=== PATIENT | female | born 2000 | race Caucasian/White ===

== ENCOUNTER 2022-10-24 11:14 | Emergency (ER) | payer OTHER, SELFPAY ==
[2022-10-24 11:50] VITALS: BP 122/75; PULSE 88; RESP 18; TEMP 37.2; O2SAT 97
[2022-10-24] MEDS: HYDROmorphone 0.5 mg/0.5 ml inj IVP (13:05)
[2022-10-24 13:13] LABS: Basophils Absolute Auto 0.02 K/uL (0.00-0.30); Basophils Percent Auto 0.4 % (0.0-3.0); Eosinophils Absolute Auto 0.01 K/uL (0.00-0.50); Eosinophils Percent Auto 0.2 % (0.0-7.0); Hematocrit 39.6 % (33.0-51.0); Hemoglobin* 13.3 gm/dL (12.0-16.0); Lymphocytes Percent Auto 14.7 % (20-44); Mean Corpuscular HGB Conc 34 gm/dL (32-36); Mean Corpuscular Hemoglobin 29 pg (26-34); Mean Corpuscular Volume 87 fL (80-100); Monocytes Percent Auto 6.2 % (0.0-11.0); Neutrophils Percent Auto 78.5 % (42.0-72.0); Platelet Count* 252 K/uL (140-440); RDW Coefficient of Variation % 12.1 % (11.5-15.5); Red Blood Count 4.54 m/uL (4.00-5.20); White Blood Count* 5.45 K/uL (4.50-11.00)
--- OUTSIDE RECORDS SUMMARY | 2022-10-24 13:21 | XMS_ITS ---
:2000 Author Organization [facility] ury Address [address] [place] [address] Care Team Providers Name Role Phone Jennifer Gomez Unavailable Unavailable PROBLEMS Type Condition ICD9-CM Code [id number] Code Onset Condition SNO MED Code Dates Status Problem Menorrhagia with N92.0 Active 266 386182 regular cycle Problem Dysmenorrhea in N94.6 Active 2665 57708 the adolescent ALLERGIES Substance Reaction Event Type Date Status Keflex Unknown Drug Allergy Mar, Active Sulfamethoxazole Unknown Drug Allergy Mar, Active Penicillin Unknown Drug Allergy Mar, Active ENCOUNTERS Encounter Location Date Diagnosis [facility] [address] Mar, Enc ounter for surveillance [place], [place] [phone] of vagin al ring hormonal contraceptive de vice Z30.44 and Dysme norrhea in the adolescent N 94.6 [facility] [address] Apr, Enc ounter for initial [place], [place] [phone] prescrip tion of vaginal ring hormonal contraceptive Z3 0.015 [facility] [address] Apr, [place], [place] [phone] [facility] [address] Feb, Enc ounter for initial [place], [place] [phone] prescrip tion of vaginal ring hormonal contraceptive Z3 0.015 ; Menorrhagia with regular cycle N92.0 ; Dy smenorrhea in adolescent N9 4.6 and Routine screenin g for STI (sexually transm itted infection) Z11.3 IMMUNIZATIONS No Known Immunizations SOCIAL HISTORY Qualifiers Date Never Smoker REASON FOR REFERRAL FUNCTIONAL STATUS PLAN OF CARE VITAL SIGNS Height 67.25 in 2022-03-25 Weight 190 lbs 2022-03-25 BMI 29.53 kg/m2 2022-03-25 Blood pressure systolic 138 mm Hg 2022-03-25 Blood pressure diastolic 78 mm Hg 2022-03-25 MEDICATIONS Medication Instructions Dosage Frequency Start End Duration Statu s Date Date NuvaRing 1 ring 90 days Active 0.12-0.015 leave in MG/24HR place for 3 weeks, remove, and replace with a new ring skip 7 day break Lexapro 5 MG Orally Once a 1 tablet 24h 30 day(s) Ac tive day Multivitamin Active Pepcid Active Ondansetron Active PROCEDURES Procedure Date Ordered Result Body Site BRIEF EMOTIONAL/BEHAV ASSMT March 25, 2022 RESULTS No Results REASON FOR VISIT Insurance Providers [facility] Member Patient Patient Patient Patient Patient Subscriber Subscriber Subscriber Group Insurance Plan Plan Plan Plan ID Relationship Address Phone Name Date of ID Name Date of No Type Insurance Insurance Insurance Coverage to Subscriber Address Phone Name Dates Medica [address] [id number] (Ins. [id number] [place] (Ins. [place] Bill) [place]) [place] [id number] MEDICAL (GENERAL) HISTORY Type Description Date Medical History migraines Medical History depression/anixety Medical History asthma Medical History heavy menstrual bleeding Surgical History No know Surgical history
--- OUTSIDE RECORDS SUMMARY | 2022-10-24 13:22 | XMS_ITS ---
:2000 Author Organization [facility] ury Address [address] [place] [address] Care Team Providers Name Role Phone Jennifer Gomez Unavailable Unavailable PROBLEMS Type Condition ICD9-CM Code UZI31-SS Code Onset Condition SNO MED Code Dates Status Problem Menorrhagia with N92.0 Active 266 482263 regular cycle Problem Dysmenorrhea in N94.6 Active 2665 42464 the adolescent ALLERGIES Substance Reaction Event Type Date Status Keflex Unknown Drug Allergy Mar, Active Sulfamethoxazole Unknown Drug Allergy Mar, Active Penicillin Unknown Drug Allergy Mar, Active ENCOUNTERS Encounter Location Date Diagnosis [facility] [address] Mar, Enc ounter for surveillance [place], [place] [phone] of vagin al ring hormonal contraceptive de vice Z30.44 and Dysme norrhea in the adolescent N 94.6 [facility] [address] Apr, Enc ounter for initial [place] [phone] prescrip tion of vaginal ring hormonal contraceptive Z3 0.015 [facility] [address] Apr, [place], [place] [phone] [facility] [address] Feb, Enc ounter for initial [place] [phone] prescrip tion of vaginal ring hormonal contraceptive [...] No Results REASON FOR VISIT Insurance Providers [facility] Health Member Patient Patient Patient Patient Patient Subscriber Subscriber Subscriber Group Insurance Plan Plan Plan Plan ID Relationship Address Phone Name Date of ID Name Date of No Type Insurance Insurance Insurance Coverage to Subscriber Address Phone Name Dates Medica [address] [id number] [phone] (Ins. [id number] [place] (Ins. [place]utz Bill) [place] Bill) [place] [id number] MEDICAL (GENERAL) HISTORY Type Description Date Medical History migraines Medical History depression/anixety Medical History asthma Medical History heavy menstrual bleeding Surgical History No know Surgical history
[2022-10-24 13:26] LABS: Chloride* 107 mmol/L (96-114)
[2022-10-24 13:27] LABS: Albumin* 4.8 g/dL (3.3-5.0); Potassium* 4.1 mmol/L (3.6-5.1); Sodium* 141 mmol/L (135-149)
[2022-10-24 13:29] LABS: Carbon Dioxide* 24 mmol/L (20-32); Creatinine* 0.6 mg/dL (0.5-1.5); Estimated Glomerular Filt Rate 131 ml/min
[2022-10-24 13:30] LABS: Alanine Aminotransferase* 20 U/L (4-35); Alkaline Phosphatase* 50 U/L (40-150); Aspartate Amino Transferase* 24 U/L (12-35); Bilirubin Direct* 0.1 mg/dL (0.0-0.5); Bilirubin Total* 0.7 mg/dL (0.1-1.5); Blood Urea Nitrogen* 11 mg/dL (5-24); Calcium* 9.5 mg/dL (8.4-10.6); Glucose* 96 mg/dL (60-115); Lipase* 46 U/L (23-300); Total Protein* 7.7 g/dL (6.0-8.3)
[2022-10-24 13:38] LABS: Slide Review Reflex No
--- NOTE | 2022-10-24 14:02 | ED.ABDPAIN ---
HPI - Abdominal Pain General Chief Complaint: Abdominal Pain Stated Complaint: Sharp lower right stomach pain Time Seen by Provider: 10/24/22 12:12 History of Present Illness HPI narrative: This 22-year-old female comes in reporting abdominal pain that awoke her suddenly at 5:00 a.m. this morning. She reports pain in the right side of her abdomen. The pain is been constant. It is not worse with certain movements but seems worse when taking a deep breath. She has had some dyspepsia over the past couple weeks. She denies having any nausea, vomiting, diarrhea, dysuria, or fevers. Related Data Home Medications Medication Instructions Recorded Confirmed escitalopram oxalate 10 mg tablet 10 mg PO DAILY 10/24/22 10/24/22 (Lexapro) ondansetron HCl 4 mg tablet 4 mg PO BID-TID PRN 10/24/22 10/24/22 Previous Rx's Medication Instructions Recorded ketorolac 10 mg tablet 10 mg PO Q8H 5 days #15 tabs 10/24/22 ondansetron HCl 4 mg tablet 4 mg PO Q6H #20 tabs 10/24/22 Allergies Allergy/AdvReac Type Severity Reaction Status Date / Time cephalexin [From Keflex] Allergy Verified 10/24/22 11:57 latex Allergy Verified 10/24/22 11:57 levofloxacin [From Levaquin] Allergy Verified 10/24/22 11:57 Penicillins AdvReac Intermediate Verified 10/24/22 11:56 Sulfa (Sulfonamide AdvReac Verified 10/24/22 11:56 Antibiotics) Review of Systems Status of ROS Reports: 10 or more systems reviewed and unremarkable except as noted in History and below Narrative Constitutional: No fevers, no weight gain or loss. Eyes: No discharge. No vision changes. HENT: No congestion, no sore throat, no ear pain. Cardiovascular: No chest pain, no palpitations. Respiratory: No shortness of breath, no wheezes, no cough. Gastrointestinal: No vomiting, no diarrhea. Right-sided abdominal pain. Genitourinary: No dysuria, no hematuria. Musculoskeletal: Normal range of motion. Skin: No rashes, no pruritis. Neurological: No dizziness, weakness, sensory change, speech change. Endo/Heme/Allergies: No bruising or bleeding. No polydipsia. Pysch: no suicidality, no anxiety, no insomnia. All other systems reviewed and are negative. PFSH PFS Social History Smoking Status: Never smoker How often do you have a drink containing alcohol: never AUDIT-C Alcohol total score: 0 Non-prescribed substance use: denies use Exam Narrative: Exam Narrative: Constitutional: Well-developed, well-nourished, no acute distress. HEENT: Normocephalic, atraumatic. Neck: Normal range of motion. Nontender. Supple. Heart: Regular. No murmurs. Normal rate. Intact distal pulses. Lungs: Clear to auscultation. No chest discomfort. No wheezes, rhonchi, or rales. Abdomen: Normal bowel sounds. Tenderness in the right abdomen and right upper quadrant. No rebound tenderness. No tenderness at McBurney's point. No tenderness in the lower abdomen. Genitalia: Deferred. Back: No midline tenderness. Normal range of motion. Extremities: Normal range of motion. No injury. Skin: Intact. No rash. Warm. No erythema or pallor. Neurologic: No altered sensation. No weakness. Alert and oriented. Psychiatric: No suicidality. No anxiety or depression. No insomnia. Nursing notes and vitals signs are reviewed. Const: Vital Signs, click to edit/add: Vital Signs - 24 hr 10/24/22 11:50 Temperature 99.0 F Pulse Rate [Pulse Oximeter] 88 Respiratory Rate 18 Blood Pressure [Ri ght Upper Arm] 122/75 Pulse Oximetry 97 Oxygen Delivery Me thod Room Air Course Vital Signs Vital signs: Initial Vital Signs Temperature 99.0 F 10/24/22 11:50 Temperature Source Temporal Artery Scan 10/24/22 11:50 Pulse Rate 88 10/24/22 11:50 Pulse Rhythm 10/24/22 11:50 Respiratory Rate 18 10/24/22 11:50 Blood Pressure 122/75 10/24/22 11:50 Blood Pressure Mean 90 10/24/22 11:50 Blood Pressure Position Sitting 10/24/22 11:50 Pulse Oximetry 97 10/24/22 11:50 Oxygen Delivery Method 10/24/22 11:50 Vital Signs Temperature 99.0 F 10/24/22 11:50 Pulse Rate 88 10/24/22 11:50 Respiratory Rate 18 10/24/22 11:50 Blood Pressure 122/75 10/24/22 11:50 Pulse Oximetry 97 10/24/22 11:50 Oxygen Delivery Method 10/24/22 11:50 Temperature 99.0 F 10/24/22 11:50 Pulse Rate 88 10/24/22 11:50 Respiratory Rate 18 10/24/22 11:50 Blood Pressure 122/75 10/24/22 11:50 Pulse Oximetry 97 10/24/22 11:50 Oxygen Delivery Method 10/24/22 11:50 MDM - Abdominal Pain MDM Narrative Medical decision making narrative: This patient had an IV established and received a dose of Dilaudid and Zofran. This brought sufficient relief to her symptoms. Lab results returned with normal findings. I did use bedside ultrasound to evaluate her gallbladder and found normal results there. I did discuss CT imaging and pelvic ultrasound options which the patient declined in a process of shared decision making. Seeing that her gallbladder appears normal in her labs are normal and there is possibility that this was a ruptured ovarian cyst especially given the sudden onset of severe pain which is now improved. The patient does have a NuvaRing in place for the past year or so. This helped regulate her dysfunctional uterine bleeding. She is okay to be discharged home and received prescription for Toradol and Zofran. I advised her to use [id number] proton pump inhibitor such as Prilosec or Nexium also as needed and directed. She understands signs and symptoms that would indicate a need for return and re-evaluation. Lab Data Labs: Lab Results 10/24/22 10/24/22 Range/Units 12:50 12:50 WBC 5.45 (4.50-11.00) K/uL RBC 4.54 (4.00-5.20) m/uL Hgb 13.3 (12.0-16.0) gm/dL Hct 39.6 (33.0-51.0) % MCV 87 (80-100) fL MCH 29 (26-34) pg MCHC 34 (32-36) gm/dL RDW Coeff of Marcio 12.1 (11.5-15.5) % Plt Count 252 (140-440) K/uL Neut % (Auto) 78.5 H (42.0-72.0) % Lymph % (Auto) 14.7 L (20-44) % [place] % (Auto) 6.2 (0.0-11.0) % Eos % (Auto) 0.2 (0.0-7.0) % Baso % (Auto) 0.4 (0.0-3.0) % Neut # (Auto) 4.30 (1.7-7.0) K/uL Lymph # (Auto) 0.80 L (0.90-2.90) K/uL [place] # (Auto) 0.30 (0.00-0.90) K/UL Eos # (Auto) 0.01 (0.00-0.50) K/uL Baso # (Auto) 0.02 (0.00-0.30) K/uL Sodium 141 (135-149) mmol/L Potassium 4.1 (3.6-5.1) mmol/L Chloride 107 (96-114) mmol/L Carbon Dioxide 24 (20-32) mmol/L BUN 11 (5-24) mg/dL Creatinine 0.6 (0.5-1.5) mg/dL Estimated GFR 131 ml/min Glucose 96 (60-115) mg/dL Calcium 9.5 (8.4-10.6) mg/dL Total Bilirubin 0.7 (0.1-1.5) mg/dL Direct Bilirubin 0.1 (0.0-0.5) mg/dL AST 24 (12-35) U/L ALT 20 (4-35) U/L Alkaline Phosphatase 50 (40-150) U/L Total Protein 7.7 (6.0-8.3) g/dL Albumin 4.8 (3.3-5.0) g/dL Lipase 46 (23-300) U/L Discharge Plan Discharge Clinical Impression: Abdominal pain Patient Disposition: Home, Self-Care Condition: Improved Additional Instructions: Take medication as needed and indicated. Follow up with MD or return if worsening symptoms happen. Prescriptions: New ondansetron HCl 4 mg tablet 4 mg PO Q6H Qty: 20 0RF ketorolac 10 mg tablet 10 mg PO Q8H 5 Days Qty: 15 0RF No Action ondansetron HCl 4 mg tablet 4 mg PO BID-TID PRN escitalopram oxalate [Lexapro] 10 mg tablet 10 mg PO DAILY Follow Up/Referrals: Provider,Not a Local [Primary Care Provider] - Stand Alone [facility] Inst[facility] Procedures Ultrasound Biliary exam #1: Anatomical areas examined: gallbladder, long and short axis and common bile duct Indications: RUQ/epigastric pain Exam type: limited abdominal ultrasound; RUQ Description/Findings: Normal appearing gallbladder without evidence of stones or gallbladder wall thickening. Normal appearing common bile duct. Liver in kidney also appear normal.
== END 2022-10-24 14:43 | disposition home or self-care (01) ==
PROVIDERS: Emergency Provider Emergency Medicine Emergency Medical Services
DX: R10.9 Unspecified abdominal pain (principal)
CPT/HCPCS: 36415; 76705; 80048; 80076; 83690; 85025; 96374; 96375; 99284; J1170